=== PATIENT | male | born 1955 | race Caucasian/White ===

== ENCOUNTER 2019-11-22 18:17 | Inpatient (IN) | payer MEDICARE ==
[~2019-11-22] VITALS: Ht 182.9 cm; Wt 121.6 kg
[~2019-11-22 18:17] MED LIST: AMLO5 PO; ASPI81CH PO; AZOR; CLON.1 PO; EXFORGE PO; HYDACE10B; HYDACE5325 PO; LEVO750 PO; LISI5 PO; LOSA50 PO; METO50ER PO; RXCODGUASY PO; VITAMIN B122500 MCG IM
[2019-11-22 19:07] LABS: BASOPHILS ABSOLUTE AUTO 0.12 K/mm3 (0.00-0.23); BASOPHILS PERCENT AUTO 1 % (0-2); EOSINOPHILS ABSOLUTE AUTO 0.33 K/mm3 (0.00-0.68); EOSINOPHILS PERCENT AUTO 3 % (0-6); Hematocrit 48.2 % (37.0-53.0); Hemoglobin 16.1 g/dL (13.5-17.5); IMMATURE GRAN ABSOLUTE AUTO 0.02 K/mm3 (0.00-0.10); IMMATURE GRAN PERCENT AUTO 0 % (0-1); LYMPHOCYTES PERCENT AUTO 23 % (21-46); MONOCYTES ABSOLUTE AUTO 0.68 K/mm3 (0.16-1.47); MONOCYTES PERCENT AUTO 7 % (4-13); Mean Corpuscular HGB Conc 33.4 g/dL (31.5-36.5); Mean Corpuscular Volume 96 fL (80-100); Mean Platelet Volume 10.5 fL (9.1-12.4); NEUTROPHILS ABSOLUTE AUTO 6.25 K/mm3 (1.96-9.15); NEUTROPHILS PERCENT AUTO 65 % (41-73); Platelet Count 182 K/mm3 (150-400); RDW Coefficient Variation 12.8 % (11.7-14.2); RDW Standard Deviation 45.4 fL (35.1-46.3); Red Blood Cell Count 5.03 M/mm3 (4.30-5.90)
[2019-11-22 19:20] LABS: International Normalized Ratio 0.97; Prothrombin Time Results 10.3 Sec (9.7-11.5)
[2019-11-22 19:27] LABS: Alanine Aminotransfer (ALT/SGP 32 U/L (12-78); Albumin, Blood 3.9 g/dL (3.4-5.0); Albumin/Globulin Ratio 1.1 (0.8-1.8); Alk Phos 73 U/L (50-136); Anion Gap 6 mmol/L (6-16); Aspartate Aminotrans (AST/SGOT 20 U/L (12-37); Bilirubin, Total 0.6 mg/dL (0.1-1.0); Blood Urea Nitrogen 16 mg/dL (8-24); Bun/Creatinine Ratio 17.7 (12.0-20.0); CO2, Blood 27 mmol/L (21-32); Chloride, Blood 105 mmol/L (98-108); Creatinine, Blood 0.91 mg/dL (0.60-1.20); Globulin, Blood 3.7 g/dL (2.2-4.0); Glomerular Filtration Rate >60 (60-); Glucose, Blood 118 mg/dL (70-99); Potassium, Blood 3.8 mmol/L (3.5-5.5); Sodium, Blood 138 mmol/L (136-145); Total Protein, Blood 7.6 g/dL (6.4-8.2)
[2019-11-22 21:30] LABS: CHOL/HDL RATIO 2.6; Cholesterol 145 mg/dL (50-200); HDL Cholesterol 56 mg/dL (>39); LDL/HDL RATIO 1.3; Low Density Lipoprotein Chol 74 mg/dL (0-110); Triglycerides 76 mg/dL (30-160); Very Low Density Lipoprot Chol 15 mg/dL (6-32)
--- NOTE | 2019-11-22 22:49 | NUR ---
ADMISSION: PATIENT IS RECIEVED FROM ER VIA STRETCHER. ABLE TO STAND AND PIVOT WITH A HEAVY ASSIST OF 2 WITH A GAIT BELT. LEFT SIDE WEAKNESS WITH LEFT LEG DRAGGING AND LEFT FACIAL DROOP. PATIENT REPORTS DIZZINESS WITH TRANSFER, NO HEAD ACHE VS ARE STABLE. PATIENT IS ORIENTED TO ROOM AND CALL FERNANDEZ AND INSTRUCTED TO CALL FOR ASSIST OOB. BED ALARM IS ON FOR SAFETY.
--- NOTE | 2019-11-23 01:56 | NUR ---
ANXIETY/INSOMNIA: PATIENT WAS EMOTIONALLY LIABLE AFTER LEFT AND BROKE DOWN AND CRIED. PATIENT IS WORRIED ABOUT HIS IF SOMETHING HAPPENS TO HIM. "I DON'T THINK I WILL BE ABLE TO SLEEP A WINK". DR KRISHNAMURTHY IS NOTIFIED AND AN ORDER FOR TRAZADONE WAS OBTAINED. MEDICATION WAS NOT GIVEN DUE TO PATIENT FALLING ASLEEP ON OWN. PATIENT IS NOW SLEEPING, RESPIRATIONS ARE EASY, BED ALARM IS ON FOR SAFETY.
--- NOTE | 2019-11-23 07:29 | NUR ---
SHIFT SUMMARY: PATIENT SLEPT WELL TROUGH SHIFT, VS REMAINED STABLE, CONTINUES TO HAVE LEFT SIDED WEAKNESS WITH FACIAL DROOP BUT NO DIFFICULTY WITH SWALLOWING OBSERVED. PATIENT WAKES THIS MORNING AND CONTINUES TO BE EMOTIONALLY LIABLE AND TEARFULL REPORTING HIGH ANXIETY. CALL FERNANDEZ IS WITHIN REACH AND BED ALARM IS ON FOR SAFETY.
--- NOTE | 2019-11-23 13:23 | NUR ---
Echocardiogram using 0.60 ml of Definity contrast and 9.0ml of agitated saline contrast was performed.
--- NOTE | 2019-11-23 18:17 | NUR ---
PT. SITTING IN BED SPOUSE AT BEDSIDE. PT. IS EATING WELL BUT NOT HAVING ANY SWALLOWING ISSUES. PT. HAS BEEN QUITE EMOTIONAL TODAY BUT ONLY WHEN SPOUSE IS OUT OF ROOM AND REQUESTS WE DON'T TELL HIS BECAUSE HE DOESN'T WANT HER TO GET UPSET R/T TO HER OWN MEDICAL CONDITION (DIALYSIS PT.). THE SPOUSE IS ALSO TRYING TO BE PROTECTIVE OF PT. AND WANTS US TO HOLD BAD NEWS BACK. PT. HAS HAD AN MRI AND ECHO TODAY.THE ONLY DEFICITS YESI NOTED ON THE PATIENT IS THE LEFT SIDED DEFICITS. SWALLOWING, ELIMINATION, SPEECH ARE ALL INTACT. NO NOTEABLE CHANGES THIS SHIFT. P.T. HAS STARTED [facility] WITH THE PATIENT.
[2019-11-24 04:42] LABS: BASOPHILS ABSOLUTE AUTO 0.11 K/mm3 (0.00-0.23); BASOPHILS PERCENT AUTO 2 % (0-2); EOSINOPHILS ABSOLUTE AUTO 0.36 K/mm3 (0.00-0.68); EOSINOPHILS PERCENT AUTO 5 % (0-6); Hematocrit 52.9 % (37.0-53.0); Hemoglobin 17.4 g/dL (13.5-17.5); IMMATURE GRAN ABSOLUTE AUTO 0.01 K/mm3 (0.00-0.10); IMMATURE GRAN PERCENT AUTO 0 % (0-1); LYMPHOCYTES ABSOLUTE AUTO 2.69 K/mm3 (0.84-5.20); LYMPHOCYTES PERCENT AUTO 36 % (21-46); MONOCYTES ABSOLUTE AUTO 0.58 K/mm3 (0.16-1.47); MONOCYTES PERCENT AUTO 8 % (4-13); Mean Corpuscular HGB 31.6 pg (26.0-34.0); Mean Corpuscular HGB Conc 32.9 g/dL (31.5-36.5); Mean Corpuscular Volume 96 fL (80-100); Mean Platelet Volume 10.2 fL (9.1-12.4); NEUTROPHILS ABSOLUTE AUTO 3.75 K/mm3 (1.96-9.15); NEUTROPHILS PERCENT AUTO 50 % (41-73); Platelet Count 191 K/mm3 (150-400); RDW Coefficient Variation 12.7 % (11.7-14.2); RDW Standard Deviation 45.4 fL (35.1-46.3)
[2019-11-24 05:04] LABS: Alanine Aminotransfer (ALT/SGP 34 U/L (12-78); Albumin, Blood 3.7 g/dL (3.4-5.0); Albumin/Globulin Ratio 0.9 (0.8-1.8); Alk Phos 72 U/L (50-136); Anion Gap 7 mmol/L (6-16); Aspartate Aminotrans (AST/SGOT 28 U/L (12-37); Bilirubin, Total 0.8 mg/dL (0.1-1.0); Blood Urea Nitrogen 14 mg/dL (8-24); Bun/Creatinine Ratio 16.7 (12.0-20.0); CO2, Blood 24 mmol/L (21-32); Calcium, Blood 9.4 mg/dL (8.5-10.1); Chloride, Blood 108 mmol/L (98-108); Creatinine, Blood 0.84 mg/dL (0.60-1.20); Globulin, Blood 3.9 g/dL (2.2-4.0); Glomerular Filtration Rate >60 (60-); Glucose, Blood 100 mg/dL (70-99); Potassium, Blood 4.2 mmol/L (3.5-5.5); Sodium, Blood 139 mmol/L (136-145); Total Protein, Blood 7.6 g/dL (6.4-8.2)
--- NOTE | 2019-11-24 05:21 | NUR ---
SHIFT SUMMARY- PT. A&O, WITH LT SIDED DEFICITS. RESTED ON/OFF DURING THE NIGHT. PT. NOTED TO HAVE SOME MILD ANXIETY AND WAS EMOTIONAL LAST NIGHT, STATED CONCERN ABOUT HIS CURRENT ILLNESS. PT. REASSURED BY THIS NURSE AND REPOSITIONED FOR COMFORT. SPOKE WITH PT'S SPOUSE AND SON ON THE PHONE. MESSAGES GIVEN BY FAMILY COMMUNICATED TO PT. PT. APPEARS TO BE RESTING COMFORTABLY IN BED, NO APPARENT DISTRESS NOTED CALL LIGHT WITHIN REACH AND SIDE RAILS UP X4 (PER PT. REQUEST). WILL CONT TO MONITOR.
--- NOTE | 2019-11-24 11:20 | NUR ---
HE HAS HIS VISITING WITH HIM NOW. HE HAS HAD LABILE EMOTIONS BUT IS VERY PLEASANT AND COOPERATIVE. HE WAS ABLE TO DANGLE AND STAND WITH OT THIS MORNING. HIS LEFT EXTREMITIES ARE WEAK. L ARM IS ACTUALLY FLACCID. HIS L EXTREMITIES ARE NUMB BUT NOT TINGLY. BATH DONE. TELE NSR. LABS WNL.
--- NOTE | 2019-11-24 16:53 | NUR ---
HE FEELS EXHAUSTED AFTER LOTS OF VISITORS TODAY. HE ASKED FOR NO MORE VISITORS TODAY EXCEPT FOR HIS IF SHE COMES BACK. WE PUT A NO VISITOR SIGN UP ON THE DOOR. HIS L-SIDED DEFICIT IS UNCHANGED. HE WORKED WITH PT AND OT TODAY. SPENT LOTS OF TIME TALKING WITH HIM AND HIS FAMILY TODAY. I JUST MEDICATED HIM WITH TYLENOL FOR A MILD H/A. HE HOPES TO BE ABLE TO SLEEP. SCD'S ON.
--- NOTE | 2019-11-24 17:26 | NUR ---
Per physician request, I had lengthy conversation with Mr. Borges. He is tearful and talkative. He feels distraught and fearful that "this" is now his baseline. He also expressed deep spiritual turmoil/grief with his estrangement from the [employer]. I provided spiritual direction/deputy county counsel to good effect. But, clearly, he will benefit from on-going deputy county counsel. He would like to meet with me on a regular basis and I assured him I would be available to him. We had an easy rapport. He shared some regrets. Self-forgiveness is his primary spiritual malady. Reconciliation with God is our goal. Phi will benefit from assurance of continued physical and spiritual support. I will continue to meet with Phi as case-load permits.
--- NOTE | 2019-11-24 18:24 | NUR ---
HE IS SLEEPING COMFORTABLY. NO DINNER YET.
--- NOTE | 2019-11-24 23:34 | NUR ---
PT. ASLEEP IN BED. NO APPARENT DISTRESS NOTED. CALL LIGHT WITHIN REACH, SIDE RAILS UP X4 (PER PT REQUEST), AND BED IN LOW POSITION. WILL CONT TO MONITOR.
--- NOTE | 2019-11-25 04:47 | NUR ---
SHIFT SUMMARY- PT. SLEPT WELL T/O THE SHIFT. NO APPARENT DISTRESS NOTED. DENIED C/O PAIN OR DISCOMFORT. NO ACUTE CHANGES TO CONDITION. CALL LIGHT WITHIN REACH AND SIDE RAILS UP X2. WILL CONT TO MONITOR.
[2019-11-25 05:22] LABS: BASOPHILS PERCENT AUTO 1 % (0-2); EOSINOPHILS ABSOLUTE AUTO 0.37 K/mm3 (0.00-0.68); EOSINOPHILS PERCENT AUTO 5 % (0-6); Hematocrit 52.9 % (37.0-53.0); Hemoglobin 17.7 g/dL (13.5-17.5); IMMATURE GRAN ABSOLUTE AUTO 0.02 K/mm3 (0.00-0.10); IMMATURE GRAN PERCENT AUTO 0 % (0-1); LYMPHOCYTES ABSOLUTE AUTO 2.59 K/mm3 (0.84-5.20); LYMPHOCYTES PERCENT AUTO 36 % (21-46); MONOCYTES PERCENT AUTO 10 % (4-13); Mean Corpuscular HGB 31.4 pg (26.0-34.0); Mean Corpuscular HGB Conc 33.5 g/dL (31.5-36.5); Mean Corpuscular Volume 94 fL (80-100); Mean Platelet Volume 9.9 fL (9.1-12.4); NEUTROPHILS ABSOLUTE AUTO 3.44 K/mm3 (1.96-9.15); NEUTROPHILS PERCENT AUTO 48 % (41-73); Platelet Count 178 K/mm3 (150-400); RDW Coefficient Variation 12.5 % (11.7-14.2); RDW Standard Deviation 43.1 fL (35.1-46.3); Red Blood Cell Count 5.63 M/mm3 (4.30-5.90); White Blood Cell Count 7.22 K/mm3 (4.00-11.30)
[2019-11-25 05:49] LABS: Alanine Aminotransfer (ALT/SGP 35 U/L (12-78); Albumin, Blood 3.8 g/dL (3.4-5.0); Alk Phos 74 U/L (50-136); Anion Gap 7 mmol/L (6-16); Aspartate Aminotrans (AST/SGOT 22 U/L (12-37); Blood Urea Nitrogen 19 mg/dL (8-24); Bun/Creatinine Ratio 22.5 (12.0-20.0); CO2, Blood 25 mmol/L (21-32); Calcium, Blood 9.5 mg/dL (8.5-10.1); Chloride, Blood 105 mmol/L (98-108); Creatinine, Blood 0.84 mg/dL (0.60-1.20); Glomerular Filtration Rate >60 (60-); Glucose, Blood 92 mg/dL (70-99); Sodium, Blood 137 mmol/L (136-145); Total Protein, Blood 7.8 g/dL (6.4-8.2)
--- NOTE | 2019-11-25 17:10 | NUR ---
Phi responded well to recreation counselor and spiritual direction. He is tearful, but less so than yesterday. Prayer provided. I will remain available.
--- NOTE | 2019-11-25 17:44 | NUR ---
HE IS RESTING IN BED, TALKING ON THE PHONE THE LAST I SAW. HE STARTED OUT TEARFUL AND DISCOURAGED. HE WAS FEELING A LITTLE BETTER AFTER THERAPY WAS FINISHED THIS MORNING. HE SAT UP IN THE RECLINER CHAIR FOR ABOUT 2 1/2 HRS OR SO. WE PUT HIM BACK TO BED WITH THE VANDERLIFT. HE FELT TOO TIRED TO HELP IF WE USED THE REAL LIFT. WE COULDN'T FIND A REAL SLING EITHER. SO WE USED THE VANDER LIFT TO PUT HIM BACK INTO BED. HE TOLERATED IT WELL. LATER HE FELT THE NEED TO HAVE A BM. HE HAD A LG BM ON THE BEDPAN IN BED. TELE NSR. HE HAS NOT NEEDED ANY TYLENOL TODAY FOR ANYTHING.HIS L ARM MOVES SPONTANEOUSLY BUT NOT WHEN HE IS TRYING TO MOVE IT. HIS L LEG HAS LESS STRENGTH TODAY. HIS R EXTREMITIES REMAIN STRONG. L EXTREMITIES NUMB. HE FOLLOWS INSTRUCTIONS. HE IS COMPLETELY ORIENTED. NO CONFUSION. FAR MENTATION, THE ONLY THING THAT SEEMED ABNORMAL TODAY IS THAT HE SAID HE DID NOT REMEMBER HIS BEING IN THE HOSPITAL HERE IN RECENT MONTHS ON THIS SAME [place]. 2 OTHER STAFF MEMBERS MENTIONED IT TO HIM. HIS ONLY VISITORS TODAY WERE HIS STEP SON AND HIS . THE AIRPORT SHUTTLE DRIVER ALSO SPENT TIME WITH HIM AND HIS . THE PLAN IS TO START OUT AT [facility] AND POSSIBLY TRANSFER TO ORIENT LATER.?
--- NOTE | 2019-11-26 05:58 | NUR ---
BENZENE WORKER SUMMARY slept fitfully most of night. Phi states he "doesn't sleep much" as a baseline and is not concerned. left arm flaccid overnight, left leg: patient did have some slight gross movement when he was being turned in bed. concern about where he will go for rehab if [facility] doesn't have any beds. also quite distraught about it. no complaints of discomfort except a dull 2/10 headache that went away on it's own
[2019-11-26] MEDS ORDERED: ATOR20 PO (11:14)
[2019-11-26] MEDS ORDERED: CLOP75 PO (11:14)
--- NOTE | 2019-11-26 14:31 | NUR ---
PATIENT BEING PREPARED FOR DISCHARGE TO [facility]. IV AND TELE REMOVED; TELE RETURNED TO PCU. PATIENT EXPECTED TO BE TRANSPORTED AT APPROX 1600.
--- NOTE | 2019-11-26 16:31 | NUR ---
patient discharged at 1613 by ambulance to [facility].
== END 2019-11-26 16:17 | DRG 65 ==
LOC: ER 18:17 → MEDS 18:18 → ENPENDDIS 11-26 11:54 → MEDS 11-26 16:17
PROVIDERS: Internal Medicine; Physician Assistant; ADMIT Family Medicine
DX: I63.9 Cerebral infarction, unspecified (principal); G81.94 Hemiplegia, unspecified affecting left nondominant side; I10 Essential (primary) hypertension; E66.9 Obesity, unspecified; Z68.36 Body mass index [BMI] 36.0-36.9, adult; G47.30 Sleep apnea, unspecified; Z79.82 Long term (current) use of aspirin
CPT/HCPCS: 36415; 70450; 70496; 70498; 70551; 80053; 80061; 82947; 83090; 84443; 85025; 85610; 93005; 93010; 96372; 97110; 97112; 97116; 97162; 97166; 97530; 97535; 99285-25; A9270; C8929; G0378; J1650; Q9957; Q9967

== ENCOUNTER → 2021-02-03 | Outpatient (CLI) | payer MEDICARE ==
[~2021-02-03] MED LIST changes: +ATOR20 PO; +CLOP75 PO
== END | disposition home or self-care (01) ==
LOC: LAB SHORT 09:17 → PLD 09:17
DX: B35.1 Tinea unguium (principal); L60.2 Onychogryphosis
CPT/HCPCS: 88305; 88312

== ENCOUNTER → 2023-06-04 | Outpatient (CLI) | payer MEDICARE ==
[~2023-06-04] MED LIST changes: +ASCO500 PO; +THERA-D2000 UNIT PO; +Zinc Gluconate100 MG PO
[2023-06-04 20:43] LABS: Percent Saturation 39.4 % (20.0-50.0)
== END ==
LOC: LAB SHORT 09:57 → LAB 09:57
PROVIDERS: Internal Medicine Hematology & Oncology
DX: E83.110 Hereditary hemochromatosis (principal)
CPT/HCPCS: 82728; 83540; 83550

== ENCOUNTER → 2023-08-07 | Outpatient (CLI) | payer MEDICARE ==
[2023-08-07 14:23] LABS: BASOPHILS ABSOLUTE AUTO 0.06 K/mm3 (0.00-0.23); BASOPHILS PERCENT AUTO 1 % (0-2); EOSINOPHILS ABSOLUTE AUTO 0.12 K/mm3 (0.00-0.68); EOSINOPHILS PERCENT AUTO 2 % (0-6); Hematocrit 48.7 % (37.0-53.0); Hemoglobin 16.5 g/dL (13.5-17.5); IMMATURE GRAN ABSOLUTE AUTO 0.01 K/mm3 (0.00-0.10); IMMATURE GRAN PERCENT AUTO 0 % (0-1); LYMPHOCYTES ABSOLUTE AUTO 1.42 K/mm3 (0.84-5.20); LYMPHOCYTES PERCENT AUTO 25 % (21-46); MONOCYTES ABSOLUTE AUTO 0.45 K/mm3 (0.16-1.47); MONOCYTES PERCENT AUTO 8 % (4-13); Mean Corpuscular HGB 31.1 pg (26.0-34.0); Mean Corpuscular HGB Conc 33.9 g/dL (31.5-36.5); Mean Corpuscular Volume 92 fL (80-100); Mean Platelet Volume 10.6 fL (9.1-12.4); NEUTROPHILS ABSOLUTE AUTO 3.68 K/mm3 (1.96-9.15); NEUTROPHILS PERCENT AUTO 64 % (41-73); Platelet Count 174 K/mm3 (150-400); RDW Coefficient Variation 12.2 % (11.7-14.2); RDW Standard Deviation 41.6 fL (35.1-46.3); Red Blood Cell Count 5.31 M/mm3 (4.30-5.90); White Blood Cell Count 5.74 K/mm3 (4.00-11.30)
[2023-08-07 14:44] LABS: Percent Saturation 29.4 % (20.0-50.0)
== END | disposition home or self-care (01) ==
LOC: LAB SHORT 10:47 → LAB 10:47
PROVIDERS: Internal Medicine Hematology & Oncology
DX: E83.110 Hereditary hemochromatosis (principal)
CPT/HCPCS: 82728; 83540; 83550; 85025

== ENCOUNTER 2023-10-17 15:14 | Emergency (ER) | payer MEDICARE ==
[~2023-10-17] VITALS: Ht 182.9 cm; Wt 110.0 kg
[2023-10-17] MEDS ORDERED: XARELTO15 MG PO (18:37)
[2023-10-17 18:48] VITALS: BP 129/79
== END 2023-10-17 18:57 | disposition home or self-care (01) ==
LOC: ER 15:14
DX: I82.4Y1 Acute embolism and thrombosis of unspecified deep veins of right proximal lower extremity (principal); Z88.5 Allergy status to narcotic agent; Z79.899 Other long term (current) drug therapy; Z79.82 Long term (current) use of aspirin; I10 Essential (primary) hypertension; R22.41 Localized swelling, mass and lump, right lower limb; I83.891 Varicose veins of right lower extremity with other complications; I87.2 Venous insufficiency (chronic) (peripheral); I82.461 Acute embolism and thrombosis of right calf muscular vein; I82.811 Embolism and thrombosis of superficial veins of right lower extremity
CPT/HCPCS: 93971; 99282; A9270

== ENCOUNTER 2025-07-30 08:26 | Day surgery (SDC) | payer OTHER ==
[2025-07-30] VITALS (10 sets, daily range): BP systolic 119–138; BP diastolic 72–84
[~2025-07-30] VITALS: Ht 182.9 cm; Wt 97.8 kg
[~2025-07-30 08:26] MED LIST changes: +SERT25 PO; +TRAM50 PO; +XARELTO15 MG PO; +XARELTO20 MG PO
[2025-07-30] MEDS ORDERED: CeFAZolin Sodium 2,000 MG in NS 100 ML IV SCH (10:15)
[2025-07-30] MEDS ORDERED: CeFAZolin Sodium 2,000 MG VIAL ONE (10:46)
--- NOTE | 2025-07-30 11:01 | NUR ---
History, Chart, Medications and Allergies reviewed before start of procedure. Lungs clear T/O to Auscultation. Patient confirms NPO status and agrees with scheduled surgery. Pre-Op teaching done. Pt verbalizes understanding. Patient reports completing Chlorhexadine shower X2 prior to admission to hospital.
[2025-07-30] MEDS ORDERED: FentaNYL Citrate 50 MCG/ML 2 ML Injection ONE ×2 (11:50→14:05)
[2025-07-30] MEDS ORDERED: Bupivacaine 0.5% HCl 5 MG/ML 30MLVIAL ONE (11:57)
[2025-07-30] MEDS ORDERED: Dexamethasone Sod Phos 10 MG/ML 1ML VIAL ONE (12:22)
[2025-07-30] MEDS ORDERED: Ondansetron HCl 2 MG / ML 2ML Vial ONE (12:22)
[2025-07-30] MEDS ORDERED: ePHEDrine Sulfate 50 MG/ML 1ML Injection ONE (12:25)
[2025-07-30] MEDS ORDERED: Rocuronium Bromide 10 MG/ML 5ML Injection IV ONE (12:32)
[2025-07-30] MEDS ORDERED: FentaNYL Citrate 50 MCG/ML 2 ML Injection IV PRN ×2 (12:45)
[2025-07-30] MEDS ORDERED: HYDROmorphone HCl/Pf 1MG SYR IV PRN ×2 (12:45)
[2025-07-30] MEDS ORDERED: Ondansetron HCl 2 MG / ML 2ML Vial IV PRN (12:45)
--- NOTE | 2025-07-30 15:19 | NUR ---
TO STEP POST RIGHT HERNIA REPAIR. GAUZE/CLEAR DRESSING CDI. REPORTS MODERATE PAIN 4/10. DENIES NAUSEA/SOB. KENJI PO WELL. ICE THERAPY PROVIDED. PT VERBALIZED UNDERSTANDING OF DC INSTRUCTIONS/FOLLOW UP/MEDICATIONS/WOUND CARE. UP TO BR WITH STANDBY ASSIST WITH PERSONAL WALKER, AT BASELINE FOR PT WITH RIGHT SIDED DEFICIT. 50 MG TRAMADOL GIVEN PO ORDERED. DENIES NEED FOR ADDITIONAL PAIN MEDICATIONS AT THIS TIME. DC'D IV INTACT. DC'D VIA WC TO PRIVATE CAR WITH NEUROPSYCHOLOGIST.
[2025-07-30] MEDS ORDERED: Phenylephrine HCl 100 MCG/ML-NS 10MLSYR (1MG/10ML) IV ONE (18:47)
== END 2025-07-30 15:00 | disposition home or self-care (01) ==
LOC: ORSCMMR 08:26 → ORD 09:00 → ORSCMMR 10:00 → ORD 10:00 → ORSCMMR 15:00
PROVIDERS: Surgery
PROC: 0YU50JZ Supplement Right Inguinal Region with Synthetic Substitute, Open Approach (ICD-10-PCS; principal; 2025-07-30 12:30)
DX: K40.90 Unilateral inguinal hernia, without obstruction or gangrene, not specified as recurrent (principal); I10 Essential (primary) hypertension; G47.33 Obstructive sleep apnea (adult) (pediatric); Z86.73 Personal history of transient ischemic attack (TIA), and cerebral infarction without residual deficits; Z79.01 Long term (current) use of anticoagulants; Z79.899 Other long term (current) drug therapy
CPT/HCPCS: A9270; C1781; J0690; J1100; J2371; J2405; J2704; J3010; J7120

== ENCOUNTER → 2025-10-20 | Outpatient (CLI) | payer OTHER | END | disposition home or self-care (01) | LOC: LAB SHORT 12:55 → LAB 12:55 | DX: R10.A2 Flank pain, left side (principal) | CPT/HCPCS: 87086 ==